=== PATIENT | male | born 1975 | race Caucasian/White ===

== ENCOUNTER 2017-05-15 08:11 | Emergency (ER) | payer SELFPAY ==
[2017-05-15 08:26] VITALS: BP 142/75
--- NOTE | 2017-05-15 08:43 | UC ---
Hand/Wrist HPI - HPI Summary HPI Summary: L LEFT THUMB PAIN X 1 DAY INJURY TO HIS LEFT THUMB AT WORK . SLAMMED HIS LEFT THUMB TO THE DOOR FRAME HE WAS HOLDING DOWN A RESIDENT + PAIN AND SWELLING OF THE LEFT THUMB - History Of Current Complaint Chief Complaint: UCUpperExtremity Stated Complaint: LEFT THUMB INJURY WC Time Seen by Provider: 05/15/17 08:29 Hx Obtained From: Patient Onset/Duration: Sudden Onset, Lasting Days - 1, Still Present Severity Initially: Moderate Severity Currently: Mild Character Of Pain: Dull Aggravating Factor(s): Movement Alleviating: Rest Associated Signs And Symptoms: Positive: Swelling, Weakness. Negative: Redness , Bruising, Fever, Numbness/Tingling - Allergies/Home Medications Allergies/Adverse Reactions: Allergies Allergy/AdvReac Type Severity Reaction Status Date / Time Latex Allergy Mild skin Verified 05/15/17 08:27 irritation PMH/Surg Hx/FS Hx/Imm Hx Previously Healthy: Yes - Surgical History Surgical History: None - Family History Known Family History: Negative: Diabetes - Social History Alcohol Use: Occasionally Substance Use Type: None Smoking Status (MU): Never Smoked Tobacco - Immunization History Most Recent Influenza Vaccination: 07/2015 Review of Systems Constitutional: Negative Skin: Negative Eyes: Negative ENT: Negative All Other Systems Reviewed And Are Negative: Yes Physical Exam Triage Information Reviewed: Yes Appearance: Well-Appearing, No Pain Distress, Well-Nourished Vital Signs: Initial Vital Signs Temp 98.5 F 05/15/17 08:20 Pulse 88 05/15/17 08:20 Resp 18 05/15/17 08:20 BP 142/75 05/15/17 08:20 Vital Signs Reviewed: Yes Eyes: Positive: Conjunctiva Clear ENT: Positive: Normal ENT inspection, Hearing grossly normal, Pharynx normal Neck: Positive: Supple, Nontender, No Lymphadenopathy Respiratory: Positive: Chest non-tender, Lungs clear, Normal breath sounds Cardiovascular: Positive: RRR, No Murmur, Pulses Normal Musculoskeletal: Positive: Other: - LEFT THUMB : + MILD SWELLING, MILD DIFFUSE TENDERNESS, GOOD ROM ON FLEXION AND EXTENSION Hand/Wrist Course/Dx - Differential Dx/Diagnosis Provider Diagnoses: CONTUSION LEFT THUMB Discharge - Discharge Plan Condition: Stable Disposition: HOME Patient Education Materials: Contusion in Adults (ED) Referrals: Cheryl Verduzco MD [Primary Care Provider] - If Needed Additional Instructions: CONTUSION LEFT THUMB CONT. WITH REST, ICE, TAKE IBUPROFEN NEEDED FOR PAIN FOLLOW UP NEEDED
== END 2017-05-15 08:50 | disposition home or self-care (01) ==
LOC: UCCORT 08:11
DX: S60.012A Contusion of left thumb without damage to nail, initial encounter (principal); W22.09XA Striking against other stationary object, initial encounter; Y93.9 Activity, unspecified; Y92.9 Unspecified place or not applicable; Y99.0 Civilian activity done for income or pay; Z91.040 Latex allergy status
CPT/HCPCS: 99211; G0463

== ENCOUNTER 2017-08-20 07:07 | Emergency (ER) | payer BC ==
[2017-08-20 07:17] VITALS: BP 133/86
--- NOTE | 2017-08-20 07:28 | ED ---
Throat Pain/Nasal Congestion - HPI Summary HPI Summary: pt presents with sinus congestion, pnd, sore throat and ear pressure x 3 days. Pt has taking nyquil, dayquil, and vicks nasal spray without relief. Pt states face aches R>L and dental pressure. no fevers. + cough from PND. No sob, cp Pt 's son sick contact Pt's medications reviewed this visit. - History of Current Complaint Chief Complaint: UCRespiratory Time Seen by Provider: 08/20/17 07:09 Hx Obtained From: Patient Onset/Duration: Gradual Onset Severity: Moderate Cough: Nonproductive - Allergies/Home Medications Allergies/Adverse Reactions: Allergies Allergy/AdvReac Type Severity Reaction Status Date / Time Latex Allergy Mild skin Verified 08/20/17 07:17 irritation Home Medications: Home Medications Dextromethorphan-Phenylephrine [Vicks Dayquil Cold & Flu] 2 cap PO ONCE PRN [History Confirmed 08/20/17] PMH/Surg Hx/FS Hx/Imm Hx Previously Healthy: Yes - Surgical History Surgery Procedure, Year, and Place: denies - Immunization History Immunizations Up to Date: Yes Infectious Disease History: No Infectious Disease History: Denies: Traveled Outside the [place] in Last 30 Days - Family History Known Family History: Negative: Diabetes - Social History Occupation: Employed Full-time Lives: With Family Alcohol Use: Occasionally Substance Use Type: Reports: None Smoking Status (MU): Never Smoked Tobacco Review of Systems Positive: Fatigue Positive: Dental Pain, Nasal Discharge, Other - nasal congestion, PND Positive: Cough All Other Systems Reviewed And Are Negative: Yes Physical Exam Triage Information Reviewed: Yes Vital Signs On Initial Exam: Initial Vitals Temp Pulse Resp BP Pulse Ox 98.1 F 87 20 133/86 99 08/20/17 07:12 08/20/17 07:12 08/20/17 07:12 08/20/17 07:12 08/20/17 07:12 Vital Signs Reviewed: Yes Appearance: Positive: Well-Appearing, No Pain Distress, Well-Nourished Skin: Positive: Warm, Skin Color Reflects Adequate Perfusion, Dry Head/Face: Positive: Normal Head/Face Inspection Eyes: Positive: Normal, EOMI, MARIBEL ENT: Positive: Hearing grossly normal, Nasal congestion, Nasal drainage, TMs normal. Negative: Pharynx normal - TMS x 2 clear turinates inflammed and boggy thick PND no erythema uvula midline + TTP max sinus Neck: Positive: Supple, Nontender, No Lymphadenopathy Respiratory/Lung Sounds: Positive: Clear to Auscultation, Breath Sounds Present Cardiovascular: Positive: Normal, RRR Abdomen Description: Positive: Nontender, No Organomegaly, Soft Bowel Sounds: Positive: Present Musculoskeletal: Positive: Normal, Strength/ROM Intact Neurological: Positive: Normal, Sensory/Motor Intact, Alert, Oriented to Person Place, Time Psychiatric: Positive: Normal AVPU Assessment: Alert - Joao Coma Scale Best Eye Response: 4 - Spontaneous Best Motor Response: 6 - Obeys Commands Best Verbal Response: 5 - Oriented Diagnostics - Vital Signs Vital Signs Temp Pulse Resp BP Pulse Ox 08/20/17 07:12 98.1 F 87 20 133/86 99 - Laboratory Lab Statement: Any lab studies that have been ordered have been reviewed, and results considered in the medical decision making process. EENT Course/Dx - Course Course Of Treatment: Pt with sinus congestion, presure and dental achiness. + thick secretions and PND. z pack. flonase. secretion precaution - Diagnoses Provider Diagnoses: Sinusitis Discharge - Discharge Plan Condition: Stable Disposition: HOME Patient Education Materials: Sinusitis (ED) Additional Instructions: - Stay well hydrated. Drink plenty of non-alcoholic, non-caffinated beverages. - take antibiotics and nasal spray as prescribed. - okay to take over the cough decongestant medications - After you have been on antibiotics for 2 days - change your toothbrush and your pillowcase. These infections are spread by secretions - do NOT share eating or drinking utensils - clean items you share with other people such as cell phones, computer mouse, TV remote, computer tablets, etc - Alternate ibuprofen (Advil, Motrin) 600mg and Tylenol every 3 hours for pain or fever. Take with food. Do NOT take for more than 4-5 days. Call your doctor or return with questions or concerns
== END 2017-08-20 07:49 | disposition home or self-care (01) ==
LOC: UCCORT 07:07
DX: J32.9 Chronic sinusitis, unspecified (principal)
CPT/HCPCS: 99212; G0463